=== PATIENT | female | born 1995 | race Caucasian/White ===

== ENCOUNTER 2016-05-22 14:46 | Emergency (ER) | payer OTHER ==
[~2016-05-22 14:46] MED LIST: CEFTIN500 MG PO
== END 2016-05-22 16:50 | disposition home or self-care (01) ==
LOC: ER1 14:46
DX: N39.0 Urinary tract infection, site not specified (principal); A59.9 Trichomoniasis, unspecified
CPT/HCPCS: 81001; 84703; 99283

== ENCOUNTER 2016-05-28 07:11 | Emergency (ER) | payer OTHER | END 2016-05-28 09:05 | disposition home or self-care (01) | LOC: ER1 07:11 | DX: T50.7X1A Poisoning by analeptics and opioid receptor antagonists, accidental (unintentional), initial encounter (principal); T43.621A Poisoning by amphetamines, accidental (unintentional), initial encounter; R41.82 Altered mental status, unspecified; F11.10 Opioid abuse, uncomplicated; F15.10 Other stimulant abuse, uncomplicated; F17.200 Nicotine dependence, unspecified, uncomplicated; Y92.524 Gas station as the place of occurrence of the external cause | CPT/HCPCS: 93005; 99284; J2310 ==

== ENCOUNTER 2016-08-08 16:21 | Emergency (ER) | payer OTHER | END 2016-08-08 17:14 | disposition home or self-care (01) | LOC: ER1 16:21 | DX: L08.9 Local infection of the skin and subcutaneous tissue, unspecified (principal); F17.210 Nicotine dependence, cigarettes, uncomplicated | CPT/HCPCS: 99282 ==

== ENCOUNTER 2020-05-14 08:56 | Emergency (ER) | payer OTHER | END 2020-05-14 09:31 | disposition home or self-care (01) | LOC: ER1 08:56 | DX: S61.412A Laceration without foreign body of left hand, initial encounter (principal); F17.210 Nicotine dependence, cigarettes, uncomplicated; W25.XXXA Contact with sharp glass, initial encounter; Y93.G9 Activity, other involving cooking and grilling | CPT/HCPCS: 12001; 99283 ==